=== PATIENT | male | born 1960 | race Caucasian/White ===

== ENCOUNTER 2019-01-22 11:01 | Emergency (ER) | payer MEDICARE, SELFPAY ==
[2019-01-22 11:03] VITALS: BP 157/89; PULSE 86; RESP 16; TEMP 37.4; O2SAT 99
--- NOTE | 2019-01-22 11:16 | DI.RAD_ITS ---
SYMPTOM/DIAGNOSIS: BLUNT TRAUMA, SWOLLEN LEFT HAND: 01/22 Three views were obtained and show fracture of the 5th metacarpal at the level of the distal diaphysis with moderate radial and volar angulation of the distal fracture fragment. No additional fracture seen.
--- NOTE | 2019-01-22 11:44 | ED.GENADUL_ITS ---
Discharge Plan Disposition Patient Disposition: HOME Discharge Details Chief Complaint: Orthopedic Clinical Impression: Closed boxer's fracture Primary Care Provider: Lori Condon ED Provider: Abel Warren Home Meds and New Rx's Prescriptions: No Action simvastatin 20 mg Tablet 20 mg PO DAILY RF: 0 lisinopril 10 mg Tablet 10 mg PO DAILY RF: 0 Discharge Instructions Additional Instructions: Please take ibuprofen over the counter. Take 600mg by mouth every 6 hours as needed for pain. Please take acetaminophen (tylenol) - 650mg every 6 hours by mouth as needed for pain. Please keep splint intact and dry. Please contact orthopedics to arrange follow-up. Return to the ER for any worsening or new concerning symptoms. Referrals: [facility] [Provider Group] Jacky Pérez MD [ [facility] STAFF PHYSICIAN] - Discharge Data Discharge Date/Time-TO BE ENTERED AT DEPARTURE: 01/22/19 12:12 Medical Decision Making 58-year-old male here 4 days after punching a wall with dorsal medial left hand swelling and pain. X-ray of the left hand interpreted by me: Fracture of the fifth metatarsal with significant angulation. I called and spoke with Dr. Pérez who was consulted on the case and assisted with reduction in the emerge department. Splint was applied by me. Patient neurovascular intact post splint application. Patient was instructed to follow- up with orthopedics. HPI General Mode of arrival: ambulatory . Date/Time Provider Initiated Documentation: 01/22/19 11:17 . Limitations to Documentation: no limitations . Information obtained by: patient . HPI Narrative: 58-year-old male here with left hand injury. Patient notes he punched a wall in frustration 4 days ago. Patient notes his had pain in his dorsal hand over the fifth metatarsal since the injury. Pain is moderate and worse on palpation and with movement of his fifth and fourth digits. He has no associated numbness or tingling. No other injury. Related Data Home Medications Medication Instructions Recorded Confirmed lisinopril 10 mg PO DAILY 01/22/19 01/22/19 simvastatin 20 mg PO DAILY 01/22/19 01/22/19 Allergies Allergy/AdvReac Type Severity Reaction Status Date / Time morphine AdvReac Agitation Unverified 01/22/19 11:08 General Stated Complaint: Orthopedic CHELSEY: 4 Review of Systems Musculoskeletal Reports as per HPI Neurologic Reports as per HPI PFS Social History Smoking/Tobacco Use Status: Current every day Drug use: Never Do you feel safe at home: Yes Do you feel safe in your relationship?: Yes Exam Skin Wounds: no wounds noted Neuro Other: Distal left fourth and fifth digit sensation intact to light touch Extrem Left upper extremity: hand (Able to wiggle his fingers) Details: neurosensory exam abnormal, tenderness Location: of the dorsal hand Location: over the 5th metacarpal and swelling Location: of the dorsal hand Location: over the 5th metacarpal Course Vital Signs Temperature 37.4 C 01/22/19 11:03 Pulse 86 01/22/19 11:03 Respiratory Rate 16 01/22/19 11:03 Blood Pressure 157/89 H 01/22/19 11:03 Pulse Oximetry 99 01/22/19 11:03 Temperature 37.4 C 01/22/19 11:03 Temperature Source Skin 01/22/19 11:03 Pulse 86 01/22/19 11:03 Respiratory Rate 16 01/22/19 11:03 Respiratory Effort Non-Labored 01/22/19 11:09 Blood Pressure 157/89 H 01/22/19 11:03 Blood Pressure Position Sitting 01/22/19 11:03 Pulse Oximetry 99 01/22/19 11:03 Oxygen Delivery Method Room Air 01/22/19 11:03 Oxygen Flow Rate 0 01/22/19 11:03 Pain Level 6 01/22/19 11:11 Comment takes BP medication 01/22/19 11:03
[2019-01-22] MEDS: Acetaminophen 325 MG TAB 650 MG PO (11:57)
[2019-01-22] MEDS: Ibuprofen 600 MG TAB PO (11:58)
== END 2019-01-22 12:12 | disposition home or self-care (01) ==
PROVIDERS: Emergency Provider Student in an Organized Health Care Education/Training Program; PCP Registered Nurse
DX: S62.397A Other fracture of fifth metacarpal bone, left hand, initial encounter for closed fracture (principal); W22.8XXA Striking against or struck by other objects, initial encounter
CPT/HCPCS: 26600; 73130

== ENCOUNTER 2019-01-29 10:37 | Outpatient (CLI) | payer MEDICARE, SELFPAY ==
--- NOTE | 2019-01-29 10:31 | DI.RAD_ITS ---
SYMPTOM/DIAGNOSIS: F/U FRACTURE LEFT HAND: Comparison is made with 22 January 2019 There has been no change in the 5th metacarpal fracture. No new abnormalities are seen.
== END 2019-01-29 10:57 ==
PROVIDERS: PCP Registered Nurse; Referring Provider Registered Nurse; Visit Provider Student in an Organized Health Care Education/Training Program
DX: S62.327A Displaced fracture of shaft of fifth metacarpal bone, left hand, initial encounter for closed fracture (principal); W22.09XA Striking against other stationary object, initial encounter; I10 Essential (primary) hypertension
CPT/HCPCS: 99213; 73130

== ENCOUNTER 2019-01-30 12:25 | Day surgery (SDC) | payer MEDICARE, SELFPAY ==
[2019-01-30 12:32] VITALS: BP 131/74; PULSE 98; RESP 17; TEMP 36.8; O2SAT 98
[2019-01-30] MEDS: Lactated Ringers 1,000 ML 80 ML IV (13:05)
--- NOTE | 2019-01-30 13:35 | DI.RAD_ITS ---
SYMPTOMS/DIAGNOSIS: FRACTURE C-ARM FLUOROSCOPY: Fluoroscopy Time: 1.17sec, 0.6297mgy Fluoroscopy was provided for Dr. Pérez in the OR. Hardcopy images show placement of a pin through the fifth metacarpal fracture with improvement in alignment.
[2019-01-30] MEDS: ceFAZolin 2 GM/50 ML BAG IVPB (14:08)
[2019-01-30] MEDS: Bupivacaine 0.5% Pres-Free 30 ML VIAL (14:25)
[2019-01-30 14:42] VITALS: BP 104/62; PULSE 73; RESP 19; TEMP 36.7; O2SAT 99
[2019-01-30 14:47] VITALS: BP 168/93; PULSE 88; RESP 18; O2SAT 99
[2019-01-30 14:51] VITALS: BP 175/96; PULSE 91; RESP 18; O2SAT 99
--- NOTE | 2019-01-30 14:52 | PDOC.DSDIS_ITS ---
Discharge Plan Disposition Patient Disposition: HOME Condition: Good Discharge Details Reason For Visit: (L) 5th MC FX Attending Provider: Jacky Pérez Primary Care Provider: Lori Condon Home Meds and New Rx's Prescriptions: New hydrocodone-acetaminophen 5-325 mg tablet 1 tab PO Q6H PRN PRN (Reason: pain) Qty: 4 RF: 0 acetaminophen 500 mg tablet 500 mg PO Q6H PRN PRN (Reason: pain) Qty: 40 RF: 3 ibuprofen 600 mg tablet 600 mg PO TID PRNQty: 30 RF: 3 Continued simvastatin 20 mg Tablet 20 mg PO QPM RF: 0 lisinopril 10 mg Tablet 10 mg PO QPM RF: 0 Discharge Instructions Additional Instructions: Activity: You should keep the hand elevated as much as possible for the first few days. You may use the other fingers as tolerated but avoid trying to do too much too soon. You may perform light activities with the splint in place. Dressing/Cast: Your splint should stay in place at all times. Do NOT get it wet. You may loosen the CHARLENE wrap if you feel it is too tight and then rewrap more loosely. Medications: - You should take Tylenol and Ibuprofen for baseline pain control. - You have been prescribed a stronger pain medication, Hydrocodone, for breakthrough pain. - You may apply ice over the wrist, just double bag so it doesn't get wet. Follow-up: 10-14 days Referrals: Jacky Pérez MD [ [facility] STAFF PHYSICIAN] - Equipment/Supplies: Splint and Sling Activity:: Elevate Remove Dressings/Wound Care:: Do Not Remove Shower/Bathe:: Cover Diet:: As Tolerated Discharge Orders Discharge Orders: Discharge Order (Routine); Ordered 01/30/19 Ordered By: Jacky Pérez DS: Diagnosis Discharge Diagnosis (1) Fracture of fifth metacarpal bone of left hand: Status: Acute
[2019-01-30 14:57] VITALS: BP 179/88; PULSE 81; RESP 19; O2SAT 99
[2019-01-30] MEDS: HYDROcodone 5/Acetaminophen 325 TAB PO ×2 (15:23→15:45)
[2019-01-30 15:47] VITALS: BP 160/96; PULSE 75; RESP 17; TEMP 36.4; O2SAT 100
--- NOTE | 2019-01-31 09:34 | ROE_ITS ---
REPORT OF OPERATIVE PROCEDURE DATE OF SURGERY January 30, 2019 PREOPERATIVE DIAGNOSIS Left fifth metacarpal shaft fracture. POSTOPERATIVE DIAGNOSIS Left fifth metacarpal shaft fracture. SURGERY Closed reduction and percutaneous pinning of left fifth metacarpal fracture. SURGEON Jacky Pérez M.D. ANESTHESIA General. ESTIMATED BLOOD LOSS Minimal. COMPLICATIONS None. DISPOSITION The patient was awakened from anesthesia and taken to the PACU in stable condition. INDICATION FOR PROCEDURE Dariel is a 58 year old, who punched a wall a little over a week ago. He suffered a displaced angulated fifth metacarpal fracture. A closed reduction was performed in the Emergency Department, but at repe at x-rays, there was still notable angulation of the fifth metacarpal fracture. Given the continued d isplacement and angulation of greater than 70 degrees, I recommended reduction and fixation. I discus sed different options to do this and thought he was a candidate for a closed reduction and percutaneo us pinning. I reviewed the technical details. I also discussed the risks to include bleeding, infecti on, pin site infection, pain, stiffness, malunion, nonunion, loss of reduction, stiffness, damage to nerves and vessels. Despite these risks, he elected to proceed. PROCEDURE DESCRIPTION Dariel was greeted in the preoperative holding area. His identity was confirmed and the correct side wa s identified and marked. The consent was reviewed with the patient and signed. The history and physic al was updated. He was taken back to the Operating Room and placed in the supine position. All bony prominences were well padded. The left hand was placed onto a hand table. Prophylactic antibiotics in the form of cefazolin were given. The left hand was scrubbed, as there was a significant amount of d irt on the hand. The hand was then prepped with ChloraPrep and draped in a standard fashion. Timeout was performed for safe surgery. A closed reduction maneuver was performed. This was a Jahss-type maneuver. There was little mobility at first, so manual manipulation of the fracture was able to free this up to for reduction. The x-ray s were used to confirm that we had adequate reduction. I then placed a 0.065 K-wire from the distal u lnar aspect of the fifth metacarpal. This was placed just off the articular surface and ran down thro ugh the distal fragment into the proximal fracture. This had reduced the malangulation. There was sti ll some translation. The finger did not appear to be rotationally malaligned. I withdrew the K-wire i nto the distal fragment only and tried to place this once again, but it seemed to find the same path. Given that the angulation was minimized and there simply some slight translation, I decided to keep this rather than trying to make multiple attempts through the bone. The K-wire was taken through the metacarpal shaft and into the proximal aspect of the metacarpal. The finger had full range of motion. The K-wire was cut short and a Jurgan ball was placed. Xeroform was placed around the base of the pi n. The area around the pin site was well padded. An ulnar gutter-type splint was then applied over th e little finger and ring finger. The fingers were placed into an intrinsic plus position. He was then awakened from anesthesia and taken back to the PACU in stable condition. There were no no lisette complications.
== END 2019-01-30 16:09 | disposition home or self-care (01) ==
PROVIDERS: PCP Registered Nurse; Visit Provider Student in an Organized Health Care Education/Training Program
PROC: (CPT 26727; principal; 2019-01-30 14:15)
DX: S62.327A Displaced fracture of shaft of fifth metacarpal bone, left hand, initial encounter for closed fracture (principal); X79.XXXA Intentional self-harm by blunt object, initial encounter; I10 Essential (primary) hypertension
CPT/HCPCS: 26608; 73120; J0690; J1100; J1885; J2250; J2405

== ENCOUNTER → 2019-02-07 14:52 | Outpatient (BNVA) | payer MEDICARE, SELFPAY | PROVIDERS: PCP Registered Nurse; Referring Provider Registered Nurse; Visit Provider Student in an Organized Health Care Education/Training Program | DX: S62.327A Displaced fracture of shaft of fifth metacarpal bone, left hand, initial encounter for closed fracture (principal); X58.XXXA Exposure to other specified factors, initial encounter ==

== ENCOUNTER 2019-02-12 15:08 | Outpatient (CLI) | payer MEDICARE, SELFPAY ==
--- NOTE | 2019-02-12 13:36 | DI.RAD_ITS ---
SYMPTOM/DIAGNOSIS: F/U LT 5TH MC FX LEFT HAND: 02/12 Two views were obtained and show previously described fracture of the 5th metacarpal with fixation pin transfixing the fracture fragments. Alignment appears essentially unchanged in comparison with intraoperative films of 01/30.
== END 2019-02-12 15:28 ==
PROVIDERS: PCP Registered Nurse; Referring Provider Registered Nurse; Visit Provider Student in an Organized Health Care Education/Training Program
DX: S62.327A Displaced fracture of shaft of fifth metacarpal bone, left hand, initial encounter for closed fracture (principal); X58.XXXA Exposure to other specified factors, initial encounter
CPT/HCPCS: 73130

== ENCOUNTER 2019-02-26 12:54 | Outpatient (CLI) | payer MEDICARE, SELFPAY ==
--- NOTE | 2019-02-26 12:32 | DI.RAD_ITS ---
EXAM: XR HAND LT COMPLETE INDICATION: f/u L 5th MC frx and pinning. COMPARISON: No exams were available for comparison TECHNIQUE: 2D digital imaging was performed. FINDINGS: An out of cast examination of the left hand reveals no interval change in the alignment of the fractu re involving the 5th carpal. Fixation pin in place, unchanged.
== END 2019-02-26 13:14 ==
PROVIDERS: PCP Registered Nurse; Visit Provider Student in an Organized Health Care Education/Training Program
DX: S62.327A Displaced fracture of shaft of fifth metacarpal bone, left hand, initial encounter for closed fracture (principal); X58.XXXA Exposure to other specified factors, initial encounter
CPT/HCPCS: 29125; L3984; 73130

== ENCOUNTER 2019-04-26 08:26 | Outpatient (CLI) | payer MEDICARE, SELFPAY ==
--- NOTE | 2019-04-26 08:05 | DI.RAD_ITS ---
EXAM: XR HAND LT COMPLETE INDICATION: f/u of fifth metacarpal fracture. COMPARISON: XR HAND LT COMPLETE from 02/26/2019 TECHNIQUE: 2D digital imaging was performed. FINDINGS: There has been no change in alignment of the fracture involving the left 5th metacarpal. The percuta neous pin has been removed. No new fracture or dislocation is seen. IMPRESSION: Stable left 5th metacarpal fracture.
== END 2019-04-26 08:46 ==
PROVIDERS: PCP Registered Nurse; Referring Provider Registered Nurse; Visit Provider Student in an Organized Health Care Education/Training Program
DX: M79.642 Pain in left hand (principal); S62.327G Displaced fracture of shaft of fifth metacarpal bone, left hand, subsequent encounter for fracture with delayed healing; X58.XXXD Exposure to other specified factors, subsequent encounter
CPT/HCPCS: 99213; 73130

== ENCOUNTER 2019-05-24 08:21 | Outpatient (CLI) | payer MEDICARE, SELFPAY ==
--- NOTE | 2019-05-24 08:30 | DI.RAD_ITS ---
EXAM: XR HAND LT COMPLETE CLINICAL HISTORY: f/u L 5th MC neck fracture TECHNIQUE: COMPARISON: XR HAND LT COMPLETE from 04/26/2019 FINDINGS: Three views were obtained. Previously described fracture of the 5th metacarpal again seen with incre ased callus formation at the fracture site and no gross interval change in alignment of the fracture fragments comparison with previous examination of April 26. IMPRESSION:
== END 2019-05-24 08:41 ==
PROVIDERS: PCP Registered Nurse; Referring Provider Registered Nurse; Visit Provider Student in an Organized Health Care Education/Training Program
DX: S62.32 Displaced fracture of shaft of other metacarpal bone (principal); X58.XXXD Exposure to other specified factors, subsequent encounter; I10 Essential (primary) hypertension
CPT/HCPCS: 99213; 73130

== ENCOUNTER 2019-07-04 10:25 | Day surgery (SDC) | payer MEDICARE, SELFPAY ==
[2019-07-04] VITALS (10 sets, daily range): BP systolic 124–177; BP diastolic 65–90; PULSE 70–89; RESP 12–18; TEMP 36.4–36.8; O2SAT 98–100
--- NOTE | 2019-07-04 08:00 | W.PREOPHP ---
Date of service: 07/04/19 Assessment and Plan Assessment and plan (1) Fracture of fifth metacarpal bone of left hand: Status: Acute Assessment and plan: SAW is a 59-year-old who has a malunion of the left fifth metacarpal neck. He was initially scheduled for malunion takedown and fixation but he had to cancel. Once again, I reviewed treatment options with SAW. It has not moved and so it is likely a dense fibrous union and malunion. However, his motion has not improved and he reports is due to pain at the level of the fracture. I do think is reasonable proceed with a malunion repair. However, it is essential that he does not smoke. He assures me that he has decreased and almost limited tobacco use. His chronic alcoholism also may make him susceptible to nonunion. I did discuss the treatments and fixation is a very reasonable option. However, there is a potential for having screw prominence, hardware prominence, hardware failure, loss of reduction, malunion or nonunion. There are nerve branches of the ulnar nerve in this area which also could get injured and cause numbness to the ulnar border of the left hand. Despite these risk, he elects to proceed with open reduction and internal fixation of a left fifth metacarpal neck malunion. I also talked with Dariel about attempting a manipulation under anesthesia to start. If he is able to get full passive motion and there is no demonstratable movement of the fracture then we could stop there, although this is unlikely and the plan is to fix the fracture. He is in agreement with this plan. Qualifiers: Encounter type: subsequent encounter Fracture alignment: displaced Fracture healing: with malunion Fracture type: closed Metacarpal location: shaft Qualified Code(s): S62.327P - Displaced fracture of shaft of fifth metacarpal bone, left hand, subsequent encounter for fracture with malunion History of Present Illness History of Present Illness Chief Complaint: Left 5th MC Malunion Narrative: Dariel is a 59-year-old who fractured his left fifth metacarpal neck in January. This was significantly displaced and he underwent closed reduction and pinning. Unfortunately, his postoperative compliance was lacking and he use the hand right away outside the splint and there is some initial displacement. The pins were eventually removed but he has been unable to gain motion due to pain. Fracture site is still apparent on the x-rays without any sign of callus formation. He continues have pain at the level of the fracture. He denies numbness or tingling. He is unable to work due to the pain and lack of motion of the left hand. Review of Systems All systems reviewed & are unremarkable except as noted in HPI and below PFSH Social History Smoking/Tobacco Use Status: Current every day Tobacco Type: cigarettes Years smoked: 45 Tobacco: How many years used: 45 Alcohol Intake: current Alcohol Intake frequency: 3 or more drinks per day Drug use: Never Substance use type: does not use Current gender identity: male Do you feel safe at home: Yes Meds Home Medications and Allergies Home Medications Medication Instructions Recorded Confirmed Type lisinopril 20 mg PO QAM 01/22/19 07/04/19 History simvastatin 20 mg PO QAM 01/22/19 07/04/19 History acetaminophen 500 mg PO Q6H PRN PRN #40 tab 01/30/19 07/04/19 Rx ibuprofen 600 mg PO TID PRN #30 tab 01/30/19 07/04/19 Rx Allergies Allergy/AdvReac Type Severity Reaction Status Date / Time morphine AdvReac Agitation Unverified 06/29/19 15:55 Exam Const General: cooperative, comfortable and no acute distress Nutritional Appearance: average body habitus Orientation: alert, awake and oriented x3 Resp Effort & Inspection: normal respiratory effort Auscultation: clear to auscultation bilaterally Cardio Rate: regular rate Rhythm: regular rhythm Extrem Other: Pain to palpation over the fracture site of the fifth metacarpal neck of the left hand. Sensation intact light touch over the radial and ulnar aspects of the left hand. No overlying skin changes or signs of infection. Range of motion of the MCP joint is limited to 25 degrees of flexion only. Isolated PIP flexion is similar to the contralateral side.
[2019-07-04] MEDS: Lactated Ringers 1,000 ML 80 ML IV (10:00)
--- NOTE | 2019-07-04 10:34 | DI.RAD_ITS ---
EXAM: XR HAND LT LIMITED CLINICAL HISTORY: left hand finger ORIF. TECHNIQUE: 2D and realtime digital imaging was performed. Fluoro time: 2 min, 13 sec, 1.0089 mGy COMPARISON: XR HAND LT COMPLETE from 05/24/2019 FINDINGS: Fluoroscopy was provided in the OR. Hard copy images show placement of a fixation plate along the 5t h metacarpal for fracture fixation.
[2019-07-04] MEDS: Lidocaine 1% Multi-Dose 50 ML VIAL (11:14)
[2019-07-04] MEDS: ceFAZolin 2 GM/50 ML BAG IVPB (11:14)
[2019-07-04] MEDS: Sodium Bicarbonate 50 MEQ/50 ML VIAL (11:14)
[2019-07-04] MEDS: Bupivacaine 0.5% Pres-Free 30 ML VIAL (12:50)
--- NOTE | 2019-07-04 12:56 | W.PM.DSUDISC ---
Discharge Plan Disposition Patient Disposition: HOME Condition: Good Discharge Details Reason For Visit: Left 5th MC Malunion Attending Provider: Jacky Pérez Primary Care Provider: Lori Condon Home Meds and New Rx's Prescriptions: New acetaminophen 500 mg tablet 1,000 mg PO Q8H PRN (Reason: pain) Qty: 90 RF: 3 oxycodone 5 mg tablet 5 mg PO Q6H PRN PRNQty: 12 RF: 0 Continued simvastatin 20 mg Tablet 20 mg PO QAM RF: 0 lisinopril 10 mg Tablet 20 mg PO QAM RF: 0 ibuprofen 600 mg tablet 600 mg PO TID PRNQty: 60 RF: 3 Discontinued acetaminophen 500 mg tablet 500 mg PO Q6H PRN PRN (Reason: pain) Qty: 40 RF: 3 Discharge Instructions Additional Instructions: Activity: You should keep the hand elevated as much as possible for the first few days. You may use the other fingers as tolerated but avoid trying to do too much too soon. You may perform light activities with the splint in place but try to avoid using the ring or little finger. Dressing/Cast: Your splint should stay in place at all times. Do NOT get it wet. You may loosen the CHARLENE wrap if you feel it is too tight and then rewrap more loosely. Medications: - You should take Tylenol (1000mg every 8 hours as needed) and Ibuprofen (600mg every 8 hours as needed) for baseline pain control. - You have been prescribed a stronger pain medication, Oxycodone, for breakthrough pain. - You may apply ice over the wrist, just double bag so it doesn't get wet. Follow-up: 10-14 days Referrals: Jacky Pérez MD [ [facility] STAFF PHYSICIAN] - Equipment/Supplies: Splint Activity:: Elevate Remove Dressings/Wound Care:: Do Not Remove Shower/Bathe:: Cover Diet:: As Tolerated Discharge Orders Discharge Orders: Discharge Order (Routine); Ordered 07/04/19 Ordered By: Jacky Pérez DS: Diagnosis Discharge Diagnosis (1) Fracture of fifth metacarpal bone of left hand: Status: Acute
[2019-07-04] MEDS: HYDROmorphone 2 MG/ML VIAL IVP (13:20)
[2019-07-04] MEDS: Normal Saline Flush 10 ML SYR IV (13:20)
[2019-07-04] MEDS: oxyCODONE 5 MG TAB PO (13:50)
--- NOTE | 2019-07-05 08:57 | ROE_ITS ---
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 SURGERY Open reduction internal fixation of left 5th metacarpal head and neck. SURGEON Jacky Pérez M.D. ACCOUNTS ADMINISTRATOR Jose Breen PA-C ANESTHESIA General. FINDINGS There was a partially united fracture of the 5th metacarpal neck region. A large portion of the fract ure site was easily penetrable with a freer elevator consisting of only fibrous tissue. The fracture was reconstituted and reduced, and secured with plate and screws. A manipulation was performed and r geovanna of motion was tested before leaving. COMPLICATIONS None. DISPOSITION The patient was awakened from anesthesia and taken to the PACU in stable condition. INDICATION FOR PROCEDURE Dariel is a 59-year old, who suffered a left 5th metacarpal neck fracture back on January. This was sign ificantly angulated and therefore I recommended closed reduction and pinning. Unfortunately, he was l ess than compliant in the initial postoperative period, removing the splint and there was subsequentl y displacement of the fracture site. The pin was removed and the fracture did not seem to move very m uch, but he never was able to regain motion and he continued to have pain at the fracture site. Subse quent x-rays showed that the fracture had not healed. 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 I reviewed the risks of the procedure to include bleeding, infection, pain, stiffness, hardware prominence, hardware failure , malunion, nonunion, need for repeat procedures. Despite these risks, he elected to proceed. PROCEDURE DESCRIPTION Dariel was greeted in preoperative holding area. His identify was confirmed and the correct side was id entified and marked. The consent was reviewed with the patient and signed. The history and physical w as updated. He was taken back to the Operating Room and placed into the supine position. The left hand was placed on the hand table. A nonsterile tourniquet was placed high up on the left arm. The left arm was prep ped with ChloraPrep and draped in a standard fashion. Prophylactic antibiotics were given in the form of cefazolin. A time-out was performed for safe surgery. The x-ray was first used to identify the fracture site. The MCP joint was significantly stiffened wit h only about 35 or so degrees of passive flexion at the MCP joint. With manipulation, I was able to g ain nearly 80 degrees of motion. However, x-rays showed that the fracture site was mobile. While not grossly moving, there was still gapping of the fracture with excessive flexion of the MCP joint. The limb was then exsanguinated and the tourniquet was inflated to 250 mmHg where it stayed for 64 minut es. A standard dorsal ulnar approach was made to the 5th metacarpal. This was curved slightly ulnarly ar ound the extensor skin creases of the 5th MCP joint. This was taken down sharply through the skin. It was bluntly dissected. Any branches of the superficial ulnar nerve were dissected and retracted. I w as able to have good visualization of the deep soft tissues without any significant intervening struc tures. The periosteum and deep tissues were incised just ulnar to the EDQ tendon. This was incised s harply, and a rowe elevator was used to elevate the periosteum off of the metacarpal shaft. This was e xtended proximally and into the extensor grimes of the ulnar side; then this was able to show the fract ure site. There was notable callus formation in this area, however, with the freer elevator I was abl e to penetrate the fracture site without difficulty. The freer elevator and curettes were used to cl vicky up the fracture site. A rongeur was used to remove any debris. Any bony pieces were kept in the w ound for utilization of local bone graft. The radial and volar aspect of the fracture appeared to be healed. Using mainly manipulation and the freer elevator, I then broke through some of this fracture. Unfortunately, the fracture broke into two pieces with the volar portion and then the head portion. I did not try to maneuver the volar portion, but simply reduce the head back onto the shaft. This was held in place with a K-wire. Confirmed to be in a good position with the x-ray. It appeared to be an atomic in both the AP and in the lateral view. A 2.0-mm variable angle T-plate was then placed onto t he metacarpal shaft. This seemed to have excellent fixation. The plate was bent on the back table to wrap around the metacarpal head for better fixation and to cut the plate three holes short. This was then placed onto the metacarpal shaft and once again showed excellent positioning. I secured the plat e to the shaft with a single cortical 1.5-mm screw through the sliding hole allowing room for rupert sharon after fixation distally. Three locking screws were then placed into the head of the 5th metacarp al. These screws were unicortical and were made sure not to penetrate through the articular surface o f the metacarpal head. Once these were placed, the K-wire was removed and the positioning was imaged completely. Multiple views were performed, as well as live radiography to confirm that no screw was p enetrating the articular surface. The finger was then taken through range of motion. I was able to ge t the MCP joint to about 85 or 90 degrees of flexion. This allowed the finger to touch into the palm. I then loosened the screw from the sliding hole and compressed the fracture site as much as possible and then re-tightened the screw advancing 1 to 2 millimeters. The remainder of the holes of the plate , two, were filled with cortical nonlocking screws. This had excellent fixation and purchase to the b one. The wound was then thoroughly irrigated. Final x-rays were obtained. The periosteum and deeper tissues were closed overlying the plate. The sagittal grimes was also closed with interrupted #2-0 Vicryls. The finger was then tested through range of motion to make sure there were no adhesions or tendons caught in the repair. I also made sure motion was acceptable and there w as at least 85 degrees of flexion of the MCP joint. There was no fracture displacement. The wound was once again irrigated. The local tissues were injected with 0.5% bupivacaine. The skin was then close d with a #4-0 Nylon in an interrupted fashion. The wound was dressed with Xeroform and 4x4s. The tourniquet was released. A dorsal blocking splint was applied over the ulnar hand, keeping the MCP joints as flexed as possible, approximately 90 degre es. This was secured. He was then awakened from anesthesia and transferred back to the PACU in stable condition. At the end of the case, all counts were correct. There were no notable complications.
== END 2019-07-04 15:24 | disposition home or self-care (01) ==
PROVIDERS: PCP Registered Nurse; Visit Provider Student in an Organized Health Care Education/Training Program
PROC: (CPT 26615; principal; 2019-07-04 11:30)
DX: S62.337P Displaced fracture of neck of fifth metacarpal bone, left hand, subsequent encounter for fracture with malunion (principal); X58.XXXA Exposure to other specified factors, initial encounter; M25.642 Stiffness of left hand, not elsewhere classified
CPT/HCPCS: 26615; NC; 73120; J0690; J1100; J2001; J2405; J2704

== ENCOUNTER 2019-07-16 11:49 | Outpatient (CLI) | payer MEDICARE, SELFPAY ==
--- NOTE | 2019-07-16 11:18 | DI.RAD_ITS ---
EXAM: XR HAND LT COMPLETE INDICATION: 1ST POST OP. COMPARISON: XR HAND LT COMPLETE from 05/24/2019 XR HAND LT LIMITED from 07/04/2019 TECHNIQUE: 2D digital imaging was performed. FINDINGS: The fixation plate is again noted along the dorsal aspect of the 5th metacarpal for fracture fixatio n. There is increased callus formation consistent with some interval healing. No new abnormalities are seen.
== END 2019-07-16 12:09 ==
PROVIDERS: PCP Registered Nurse; Referring Provider Registered Nurse; Visit Provider Student in an Organized Health Care Education/Training Program
DX: S62.32 Displaced fracture of shaft of other metacarpal bone; X58.XXXD Exposure to other specified factors, subsequent encounter; I10 Essential (primary) hypertension
CPT/HCPCS: 73130

== ENCOUNTER 2019-07-30 09:20 | Outpatient (CLI) | payer MEDICARE, SELFPAY ==
--- NOTE | 2019-07-30 09:00 | DI.RAD_ITS ---
EXAM: XR HAND LT COMPLETE CLINICAL HISTORY: f/u orif TECHNIQUE: COMPARISON: XR HAND LT COMPLETE from 07/16/2019 FINDINGS: Three views were obtained and show previously described plate and screw fixation of the 5th metacarpa l with no gross change in alignment of fracture fragments comparison with examination July 16. IMPRESSION:
== END 2019-07-30 09:40 ==
PROVIDERS: PCP Registered Nurse; Referring Provider Registered Nurse; Visit Provider Student in an Organized Health Care Education/Training Program
DX: Z98.890 Other specified postprocedural states; S62.32 Displaced fracture of shaft of other metacarpal bone; X58.XXXD Exposure to other specified factors, subsequent encounter; Z87.81 Personal history of (healed) traumatic fracture
CPT/HCPCS: 73130

== ENCOUNTER 2024-01-17 02:46 | Outpatient (CLI) | payer MEDICARE, SELFPAY ==
[2024-01-17 12:40] LABS: CREATININE 1.6 mg/dL (0.70-1.30); Calculated LDL 136 mg/dL (<100); Cholesterol 220 mg/dL (<200); Estimated GFR 48.11 (mL/min/1.73m2); HDL Cholesterol 53 mg/dL (40-60); Potassium 4.5 mmol/L (3.5-5.1); Triglyceride 159 mg/dL (<150)
== END 2024-01-17 02:47 | disposition home or self-care (01) ==
LOC: LOS 02:46
PROVIDERS: PCP Nurse Practitioner Family; Visit Provider Nurse Practitioner Family
DX: I10 Essential (primary) hypertension (principal); E78.5 Hyperlipidemia, unspecified
CPT/HCPCS: 36415; 80061; 82565; 84132